=== PATIENT | male | born 1985 | race Caucasian/White ===

== ENCOUNTER 2017-12-23 11:37 | Outpatient (CLI) | payer OTHER ==
[2017-12-23 14:18] LABS: #Eosinphils 0.1 thou/uL (0.0-0.7); #Lymphocytes 1.5 thou/uL (1.20-3.40); #Monocytes 0.5 thou/uL (0.11-0.59); #Neutrophils 5.9 thou/uL (1.40-6.50); %Basophils 0.5 % (0.0-1.0); %Eosinophils 1.1 % (0.0-10.0); %Lymphocytes 19.1 % (21.0-51.0); %Monocytes 5.8 % (0.0-10.0); %Neutrophils 73.4 % (42.0-75.0); Hemoglobin 18.3 g/dL (14.0-18.0); Mean Corpuscular HGB CONC 34.6 g/dL (32.0-36.0); Mean Corpuscular Hemoglobin 31.3 pg (27.0-31.0); Mean Corpuscular Volume 90.5 fl (80.0-94.0); Mean Platelet Volume 7.5 fL (7.4-10.4); Platelet Count 213 thou/uL (130-400); RBC Distribution Width 12.3 % (11.5-14.5); Red Blood Cell (RBC) Count 5.86 mill/uL (4.70-6.10)
[2017-12-23 14:53] LABS: Anion Gap 13 mmol/L (10-20); BUN (Urea Nitrogen) 10 mg/dL (8.9-20.6); Calc. Creatinine Clearance 0 mL/min (70-130); Calcium 9.9 mg/dL (7.8-10.44); Carbon Dioxide 25 mmol/L (22-29); Chloride 102 mmol/L (98-107); Estimated GFR-MDRD Greater than 90; Glucose 89 mg/dL (70-105); Sodium 136 mmol/L (136-145)
== END 2017-12-23 11:38 | disposition home or self-care (01) ==
LOC: LABBT 11:37
PROVIDERS: ATTEND Specialist
DX: Z01.812 Encounter for preprocedural laboratory examination (principal); K40.90 Unilateral inguinal hernia, without obstruction or gangrene, not specified as recurrent
CPT/HCPCS: 80048; 85025

== ENCOUNTER 2017-12-28 13:34 | Day surgery (SDC) | payer OTHER ==
--- NOTE | 2017-12-23 12:24 | HP ---
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 He occa sionally does heavy lifting, but most time spends in the vehicles observing machinery and troubleshoo ting. Patient a week ago was weightlifting heavy objects on the job, noticed a bulge in his left anna in. This is very large and with time it reduced. He continues to have discomfort. Today in the off ice on initial exam, he appreciated a left inguinal hernia, but could not reduce, but reproduces on s ubsequent exam, although exam was compromised by his tenderness in the area. Testicles are normal bi laterally, right groin without hernia. ALLERGIES: SULFA. SOCIAL HISTORY: Tobacco 1/2 pack per day. ALCOHOL: None. MEDICATIONS: Phentermine for weight loss, just started. PAST SURGICAL HISTORY: Laparoscopic resection of a colon cyst. REVIEW OF SYSTEMS: Ten point noncontributory. The patient is single. PHYSICAL EXAMINATION: VITAL SIGNS: 242 pounds, 69 inches, 35 BMI, 159/92, 120 heart rate, temperature 97.9 degrees. HEENT: Unremarkable. LUNGS: Clear to auscultation. CARDIAC: Regular rate and rhythm without murmur or gallop. ABDOMEN: Soft, nontender. EXTREMITIES: Unremarkable. No ankle edema and axillary and groins without lymphadenopathy. SKIN: Normal color. Sclerae nonicteric neurologically intact. No focal deficits. Testicles normal bilaterally, right groin without hernia. The patient was examined standing and the left inguinal he rnia appreciated on initial exam, but it was too tender to reproduce this. Testicles normal without tenderness. ASSESSMENT AND PLAN: Left inguinal hernia. Would recommend repair using mesh. He understands risks of infection, bleeding, reoperation and consents.
[2017-12-23 13:24] VITALS: BMI 34.0
[2017-12-28] MEDS ORDERED: CEFAZOLIN/Water 2 GM/20 ML SYRINGE ONE (13:44)
[2017-12-28] MEDS ORDERED: Ketorolac Tromethamine 30 MG/ML VIAL ONE (13:44)
[2017-12-28] MEDS ORDERED: Fentanyl 100 MCG/2 ML VIAL ONE ×5 (15:33→19:19)
[2017-12-28] MEDS ORDERED: Propofol 200 MG/20 ML VIAL ONE (16:03)
[2017-12-28] MEDS ORDERED: Lidocaine 1% PF 5 ML VIAL ONE (16:03)
[2017-12-28] MEDS ORDERED: Ondansetron HCl/PF 4 MG/2 ML Vial ONE (16:03)
[2017-12-28] MEDS ORDERED: Dexamethasone 20 MG/5 ML VIAL ONE (16:03)
[2017-12-28] MEDS ORDERED: Lidocaine 2% w/Epinephrine 1:200K 20 ML VIAL ONE (16:07)
[2017-12-28] MEDS ORDERED: Bupivacaine PF 0.5% 30 ML VIAL ONE (16:07)
[2017-12-28] MEDS ORDERED: Midazolam HCl 2 mg/2 ml Vial ONE ×2 (17:43→19:43)
[2017-12-28] MEDS ORDERED: HYDROmorphone 0.5 MG/0.5 ML SYRINGE ONE ×2 (19:36→19:43)
[2017-12-28] MEDS ORDERED: HYDROcodone/Acetaminophen 5/325 mg Tablet ONE (20:57)
--- NOTE | 2017-12-28 22:35 | OP ---
PREOPERATIVE DIAGNOSIS: Left inguinal hernia. POSTOPERATIVE DIAGNOSIS: Left inguinal hernia. PROCEDURE: PHS mesh repair of direct left inguinal hernia and resection of large lipoma of the cord. SURGEON: Rey Montano M.D. ANESTHESIA: General. Local of 0.5% Marcaine, 30 mL, mixed with 2% Xylocaine, 20 mL. PROCEDURE IN DETAIL: The patient taken to the operating room where under general anesthesia, abdomen was clipped of hair, prepared with ChloraPrep, draped in routine fashion. Ioban was used. Local an esthetic infiltrated into skin and subcutaneous tissue for ilioinguinal nerve block and along the filiberto e of incision in the lower left groin and carried down through the skin and subcutaneous tissue. The external oblique, incising it in the direction of its fibers to the cord structures which were disse cted free and surrounded with Edgerton drain. Cremasteric fibers were taken down with the cautery. I lioinguinal nerve identified excised and large lipoma of the cord was resected with cautery. Indirec t hernia sac was not present and direct hernial defect was noted. PHS mesh underlay portion placed i n the preperitoneal space. The onlay portion placed in the floor of canal, placing the extended port ion superiorly in the inguinal canal. A slit made in the mesh laterally to the cylindrical connectin g ring and mesh brought around the cord structures and secured itself laterally to Poupart's ligament with 0 Nurolon suture. Inferiorly, the mesh secured to Edmundo's ligament with 2 interrupted sutures of 0 Nurolon. Good hernia repair undertaken. Edgerton drain was removed. External oblique closed w ith continuous suture of 3-0 Monocryl, Camper's with 3-0 Monocryl, skin with subdermal 4-0 Monocryl a nd local anesthetic mixture infiltrated into the space of the inguinal canal and space above and belo w Camper's fascia and infiltrated into skin and subcutaneous tissue. The patient tolerated the proce dure well.
== END 2017-12-28 21:28 | disposition home or self-care (01) ==
LOC: SDC 13:34
PROVIDERS: ATTEND Specialist
PROC: 0YU60JZ Supplement Left Inguinal Region with Synthetic Substitute, Open Approach (ICD-10-PCS; principal; 2017-12-28)
DX: K40.90 Unilateral inguinal hernia, without obstruction or gangrene, not specified as recurrent (principal); D17.6 Benign lipomatous neoplasm of spermatic cord; K21.9 Gastro-esophageal reflux disease without esophagitis; F17.210 Nicotine dependence, cigarettes, uncomplicated; Z79.899 Other long term (current) drug therapy; Z88.2 Allergy status to sulfonamides; Z98.890 Other specified postprocedural states
CPT/HCPCS: 96374; C1781; J0131; J1100; J1170; J1885; J2001; J2250; J2405; J2704; J3010; S0020

== ENCOUNTER 2018-10-04 13:18 | Outpatient (CLI) | payer OTHER ==
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
== END 2018-10-04 13:19 | disposition home or self-care (01) ==
LOC: BICRAD 13:18
PROVIDERS: ATTEND Physician Assistant
DX: J45.901 Unspecified asthma with (acute) exacerbation (principal)
CPT/HCPCS: 71046

== ENCOUNTER 2021-06-23 12:50 | Emergency (ER) | payer SELFPAY ==
[2021-06-23 14:20] LABS: #Basophils 0.1 thou/uL (0.0-0.2); #Eosinphils 0.5 thou/uL (0.0-0.7); #Monocytes 0.5 thou/uL (0.11-0.59); #Neutrophils 4.3 thou/uL (1.40-6.50); %Eosinophils 7.3 % (0.0-10.0); %Lymphocytes 26.5 % (21.0-51.0); %Monocytes 7.2 % (0.0-10.0); Mean Corpuscular HGB CONC 33.6 g/dL (32.0-36.0); Mean Corpuscular Hemoglobin 30.7 pg (27.0-31.0); Mean Corpuscular Volume 91.2 fL (78.0-98.0); Mean Platelet Volume 7.5 fL (7.4-10.4); Platelet Count 219 thou/uL (130-400); Red Blood Cell (RBC) Count 5.55 mill/uL (4.70-6.10); White Blood Cell (WBC) Count 7.4 thou/uL (4.8-10.8)
[2021-06-23 14:42] LABS: ALT (SGPT) 148 U/L (8-55); AST (SGOT) 73 U/L (5-34); Albumin 4.7 g/dL (3.5-5.0); Alkaline Phosphatase 46 U/L (40-110); Anion Gap 10 mmol/L (10-20); BUN (Urea Nitrogen) 11 mg/dL (8.9-20.6); Bilirubin, Total 0.6 mg/dL (0.2-1.2); Calc. Creatinine Clearance 0 mL/min (70-130); Calcium 9.6 mg/dL (7.8-10.44); Carbon Dioxide 28 mmol/L (22-29); Chloride 101 mmol/L (98-107); Globulin 2.9 g/dL (2.4-3.5); Glucose 125 mg/dL (70-105); Protein, Total 7.6 g/dL (6.0-8.3); Sodium 135 mmol/L (136-145)
[2021-06-23] MEDS ORDERED: Ketorolac Tromethamine 30 MG/ML VIAL ONE (15:51)
[2021-06-23] MEDS ORDERED: Cyclobenzaprine 10 MG TAB ONE (15:51)
[2021-06-23] MEDS ORDERED: predniSONE 20 MG TAB ONE (15:51)
[2021-06-24 00:13] LABS: SARS-CoV-2 PCR by NAA Not Detected (NotDetected)
== END 2021-06-23 16:49 | disposition home or self-care (01) ==
LOC: ERS 12:50
DX: B34.9 Viral infection, unspecified (principal); K40.90 Unilateral inguinal hernia, without obstruction or gangrene, not specified as recurrent; Z20.822 Contact with and (suspected) exposure to COVID-19
CPT/HCPCS: 36415; 71045; 80053; 83690; 84484; 85025; 93005; 94760; 96372; J1885; J7512; U0003; U0005

== ENCOUNTER 2021-10-01 11:43 | Inpatient (IN) | payer OTHER, SELFPAY ==
[2021-10-01] MEDS ORDERED: methylPREDNISolone Sod Succ/PF 125 MG/2 ML VIAL ONE (13:25)
[2021-10-01] MEDS ORDERED: Diazepam 10 MG/2 ML SYRINGE ONE (13:26)
[2021-10-01] MEDS ORDERED: Ondansetron PF 4 MG/2 ML Vial ONE ×2 (15:07→15:15)
[2021-10-01] MEDS ORDERED: Morphine 4 MG/ML VIAL ONE ×2 (15:07→15:15)
[2021-10-01] MEDS ORDERED: Ketorolac Tromethamine 30 MG/ML VIAL ONE (15:08)
[2021-10-01 16:39] LABS: #Lymphocytes 0.9 thou/uL (1.20-3.40); #Monocytes 0.2 thou/uL (0.11-0.59); #Neutrophils 6.8 thou/uL (1.40-6.50); %Basophils 0.3 % (0.0-1.0); %Eosinophils 0.5 % (0.0-10.0); %Lymphocytes 11.5 % (21.0-51.0); %Monocytes 2.2 % (0.0-10.0); %Neutrophils 85.5 % (42.0-75.0); Hemoglobin 16.6 g/dL (14.0-18.0); Mean Corpuscular HGB CONC 33.9 g/dL (32.0-36.0); Mean Corpuscular Hemoglobin 30.1 pg (27.0-31.0); Mean Corpuscular Volume 88.8 fL (78.0-98.0); Mean Platelet Volume 7.1 fL (7.4-10.4); Platelet Count 201 thou/uL (130-400); RBC Distribution Width 12.4 % (11.5-14.5); Red Blood Cell (RBC) Count 5.51 mill/uL (4.70-6.10)
[2021-10-01 16:59] LABS: ALT (SGPT) 144 U/L (8-55); AST (SGOT) 65 U/L (5-34); Albumin 4.6 g/dL (3.5-5.0); Alkaline Phosphatase 42 U/L (40-110); Anion Gap 13 mmol/L (10-20); BUN (Urea Nitrogen) 12 mg/dL (8.9-20.6); Bilirubin, Total 0.8 mg/dL (0.2-1.2); Calc. Creatinine Clearance 0 mL/min (70-130); Calcium 9.6 mg/dL (7.8-10.44); Carbon Dioxide 24 mmol/L (22-29); Chloride 103 mmol/L (98-107); Globulin 2.9 g/dL (2.4-3.5); Glucose 174 mg/dL (70-105); Protein, Total 7.5 g/dL (6.0-8.3); Sodium 136 mmol/L (136-145)
[2021-10-01] MEDS ORDERED: Enoxaparin Sodium 40 MG/0.4 ML SYRINGE SC SCH (17:00)
[2021-10-01] MEDS ORDERED: Ondansetron PF 4 MG/2 ML Vial IVP PRN (17:00)
[2021-10-01] MEDS ORDERED: Calcium Carbonate 500 MG ChewTAB PO PRN (17:00)
[2021-10-01] MEDS ORDERED: Senokot S 8.6-50 MG TAB PO PRN (17:00)
[2021-10-01] MEDS ORDERED: Ondansetron ODT 4 MG TAB PO PRN (17:00)
[2021-10-01 17:04] LABS: Bilirubin Negative (Negative); Blood, Urine Negative (Negative); Clarity Clear (Clear); Glucose, Urine (Dipstick) Normal (Negative); Ketone, Urine Negative (Negative); Leukocyte Negative Leu/uL (Negative); Nitrite Negative (Negative); Protein, Urine (Dipstick) Negative (Neg-Trace); Specific Gravity, Urine 1.023 (1.002-1.036); Urobilinogen Normal mg/dL (Less than 2); pH, Urine 5.5 (5.0-9.0)
[2021-10-01 17:37] VITALS: BMI 37.0
[2021-10-01] MEDS: Morphine 4 MG/ML VIAL SLOW IVP PRN ×3 (17:43→23:30)
[2021-10-01 17:44] LABS: Magnesium 1.9 mg/dL (1.6-2.6)
[2021-10-01] MEDS: Acetaminophen 325 MG TAB PO SCH ×2 (17:50→23:29)
[2021-10-01 17:52] LABS: Phosphorus 1.1 mg/dL (2.3-4.7)
[2021-10-01] MEDS: Nicotine 21 MG PATCH TD SCH (17:53)
[2021-10-01] MEDS ORDERED: predniSONE 20 MG TAB PO SCH (18:00)
[2021-10-01] MEDS ORDERED: Potassium Phosphate 9 MMOL in Sodium Chloride 0.9% 100 ML IVPB SCH (18:15)
[2021-10-01] MEDS: tiZANidine HCl 4 MG TAB PO SCH (19:29)
[2021-10-01] MEDS: Gabapentin 300 MG CAP PO SCH (20:32)
[2021-10-01] MEDS: Ibuprofen 800 MG TAB PO SCH (20:33)
[2021-10-01 22:23] LABS: Phosphorus 1.3 mg/dL (2.3-4.7)
[2021-10-01] MEDS: Lidocaine 5% Patch TD SCH (23:31)
[2021-10-02 02:50] LABS: Phosphorus 1.9 mg/dL (2.3-4.7)
[2021-10-02] MEDS: Morphine 4 MG/ML VIAL SLOW IVP PRN ×9 (03:41→23:03)
[2021-10-02] MEDS ORDERED: Potassium Phosphate 9 MMOL in Sodium Chloride 0.9% 100 ML IVPB SCH (04:00)
[2021-10-02] MEDS: Acetaminophen 325 MG TAB PO SCH ×3 (05:26→18:12)
[2021-10-02] MEDS: Ibuprofen 800 MG TAB PO SCH (05:27)
[2021-10-02 05:55] LABS: ALT (SGPT) 132 U/L (8-55); AST (SGOT) 46 U/L (5-34); Albumin 4.4 g/dL (3.5-5.0); Alkaline Phosphatase 49 U/L (40-110); Bilirubin, Direct 0.2 mg/dL (0.1-0.3); Bilirubin, Total 0.6 mg/dL (0.2-1.2); Protein, Total 7.1 g/dL (6.0-8.3)
[2021-10-02 07:37] LABS: SARS-CoV-2 PCR by NAA Not Detected (NotDetected)
[2021-10-02] MEDS ORDERED: Lidocaine 5% Patch TD SCH (09:00)
[2021-10-02] MEDS ORDERED: FLU VACC QS2021-22(6MOS UP)/PF 60 MCG/0.5 ML SYRINGE IM ONE (09:00)
[2021-10-02] MEDS ORDERED: Morphine 4 MG/ML VIAL SLOW IVP SCH (09:30)
[2021-10-02] MEDS: Enoxaparin Sodium 40 MG/0.4 ML SYRINGE SC SCH (09:49)
[2021-10-02] MEDS: Cholecalciferol 1,000 UNITS (25 MCG) TAB PO SCH (09:50)
[2021-10-02] MEDS: Gabapentin 300 MG CAP PO SCH ×3 (09:51→20:09)
[2021-10-02] MEDS: tiZANidine HCl 4 MG TAB PO SCH (09:52)
[2021-10-02] MEDS: Calcium Carbonate 600 MG + Vit D TAB PO SCH (09:52)
[2021-10-02] MEDS: HYDROcodone/Acetaminophen 5/325 mg Tablet PO SCH ×2 (11:03→14:27)
[2021-10-02] MEDS: Transdermal Patch Removal TOP SCH (11:09)
[2021-10-02] MEDS: Baclofen 10 MG TAB PO SCH ×2 (14:25→20:11)
[2021-10-02] MEDS ORDERED: Morphine 2 MG/ML VIAL SLOW IVP SCH (14:30)
[2021-10-02] MEDS ORDERED: Morphine IR Tab 15 MG TAB PO SCH (16:00)
[2021-10-02] MEDS ORDERED: fentaNYL 50 mcg/hour Patch TD SCH (16:30)
[2021-10-02] MEDS: Nicotine 21 MG PATCH TD SCH (16:35)
[2021-10-02] MEDS ORDERED: methylPREDNISolone Sod Succ 40 MG VIAL IVP SCH (16:45)
[2021-10-02 16:54] LABS: Amphetamine Not Detected (NotDetected); Barbiturates Screen Not Detected (NotDetected); Benzodiazepine Screen Detected (NotDetected); Cocaine Metabolite Screen Not Detected (NotDetected); Methadone Not Detected (NotDetected); Methamphetamine Not Detected (NotDetected); Opiate Screen Detected (NotDetected); Oxycodone Screen Not Detected (NotDetected); Phencyclidine (PCP) Not Detected (NotDetected); THC/Cannabinoid Screen Not Detected (NotDetected); Tricyclic Screen Not Detected (NotDetected)
[2021-10-02] MEDS ORDERED: Baclofen 10 MG TAB PO SCH (21:00)
[2021-10-02] MEDS: Lidocaine 5% Patch TD SCH (21:33)
[2021-10-03] MEDS: Morphine 4 MG/ML VIAL SLOW IVP PRN ×12 (00:53→22:35)
[2021-10-03] MEDS: Senokot 8.6 MG TAB PO PRN ×2 (01:00→18:36)
[2021-10-03] MEDS: Acetaminophen 325 MG TAB PO SCH ×4 (01:04→18:03)
[2021-10-03 08:15] LABS: ALT (SGPT) 94 U/L (8-55); AST (SGOT) 20 U/L (5-34); Albumin 4.5 g/dL (3.5-5.0); Alkaline Phosphatase 47 U/L (40-110); Anion Gap 12 mmol/L (10-20); BUN (Urea Nitrogen) 13 mg/dL (8.9-20.6); Bilirubin, Total 0.4 mg/dL (0.2-1.2); Calc. Creatinine Clearance 189 mL/min (70-130); Carbon Dioxide 30 mmol/L (22-29); Chloride 99 mmol/L (98-107); Globulin 2.8 g/dL (2.4-3.5); Glucose 164 mg/dL (70-105); Phosphorus 4.8 mg/dL (2.3-4.7); Potassium 4.4 mmol/L (3.5-5.1); Protein, Total 7.3 g/dL (6.0-8.3); Sodium 137 mmol/L (136-145)
[2021-10-03] MEDS: Baclofen 10 MG TAB PO SCH ×3 (08:42→21:02)
[2021-10-03] MEDS: Calcium Carbonate 600 MG + Vit D TAB PO SCH (08:42)
[2021-10-03] MEDS: Cholecalciferol 1,000 UNITS (25 MCG) TAB PO SCH (08:42)
[2021-10-03] MEDS: Gabapentin 300 MG CAP PO SCH ×3 (08:43→21:02)
[2021-10-03] MEDS: Enoxaparin Sodium 40 MG/0.4 ML SYRINGE SC SCH (08:43)
[2021-10-03] MEDS: methylPREDNISolone Sod Succ 40 MG VIAL IVP SCH (08:43)
[2021-10-03] MEDS: Polyethylene Glycol 3350 17 GM Packet PO SCH (08:44)
[2021-10-03] MEDS: Transdermal Patch Removal TOP SCH (08:44)
[2021-10-03] MEDS ORDERED: Dexamethasone 4 mg/ml Vial IM SCH (09:00)
[2021-10-03] MEDS: Nicotine 21 MG PATCH TD SCH (17:17)
[2021-10-03] MEDS: Lidocaine 5% Patch TD SCH (21:04)
[2021-10-04] MEDS: Acetaminophen 325 MG TAB PO SCH ×2 (01:28→06:57)
[2021-10-04] MEDS: Morphine 4 MG/ML VIAL SLOW IVP PRN ×7 (01:28→20:24)
[2021-10-04] MEDS: Nicotine 21 MG PATCH TD SCH (03:19)
[2021-10-04 07:41] LABS: ALT (SGPT) 78 U/L (8-55); AST (SGOT) 24 U/L (5-34); Albumin 4.4 g/dL (3.5-5.0); Alkaline Phosphatase 46 U/L (40-110); Anion Gap 11 mmol/L (10-20); BUN (Urea Nitrogen) 17 mg/dL (8.9-20.6); Bilirubin, Total 0.4 mg/dL (0.2-1.2); Calc. Creatinine Clearance 195 mL/min (70-130); Calcium 9.3 mg/dL (7.8-10.44); Carbon Dioxide 31 mmol/L (22-29); Chloride 101 mmol/L (98-107); Globulin 2.5 g/dL (2.4-3.5); Glucose 120 mg/dL (70-105); Potassium 4.2 mmol/L (3.5-5.1); Protein, Total 6.9 g/dL (6.0-8.3); Sodium 139 mmol/L (136-145)
[2021-10-04 07:42] LABS: Phosphorus 4.9 mg/dL (2.3-4.7)
[2021-10-04] MEDS: Transdermal Patch Removal TOP SCH ×2 (09:00→09:04)
[2021-10-04] MEDS: methylPREDNISolone Sod Succ 40 MG VIAL IVP SCH (09:02)
[2021-10-04] MEDS: Calcium Carbonate 600 MG + Vit D TAB PO SCH (09:02)
[2021-10-04] MEDS: Gabapentin 300 MG CAP PO SCH (09:02)
[2021-10-04] MEDS: Cholecalciferol 1,000 UNITS (25 MCG) TAB PO SCH (09:03)
[2021-10-04] MEDS: Senokot 8.6 MG TAB PO SCH ×2 (09:03→20:19)
[2021-10-04] MEDS: Baclofen 10 MG TAB PO SCH ×3 (09:03→20:20)
[2021-10-04] MEDS: Polyethylene Glycol 3350 17 GM Packet PO SCH (09:04)
[2021-10-04] MEDS: Enoxaparin Sodium 60 MG/0.6 ML SYRINGE SC SCH (09:04)
[2021-10-04] MEDS ORDERED: oxyCODONE/Acetaminophen 5 mg/325 mg Tablet PO PRN (10:49)
[2021-10-04] MEDS ORDERED: Gabapentin 300 MG CAP PO SCH (10:53)
[2021-10-04] MEDS: oxyCODONE/Acetaminophen 5 mg/325 mg Tablet PO PRN ×2 (12:04→16:14)
[2021-10-04] MEDS: Gabapentin 400 MG CAP PO SCH ×2 (14:22→20:20)
[2021-10-04 17:00] LABS: Reference Lab Name LABCORP
[2021-10-04 17:01] LABS: Ref Lab Test Ordered DRUG SCR 12 W CONF
[2021-10-04] MEDS: Lidocaine 5% Patch TD SCH (21:08)
[2021-10-05] MEDS: oxyCODONE/Acetaminophen 5 mg/325 mg Tablet PO PRN ×2 (01:04→07:43)
[2021-10-05] MEDS: Morphine 4 MG/ML VIAL SLOW IVP PRN ×4 (04:02→21:09)
[2021-10-05 07:07] LABS: Phosphorus 4.7 mg/dL (2.3-4.7)
[2021-10-05 07:21] LABS: AST (SGOT) 23 U/L (5-34); Albumin 3.9 g/dL (3.5-5.0); Anion Gap 13 mmol/L (10-20); BUN (Urea Nitrogen) 13 mg/dL (8.9-20.6); Bilirubin, Total 0.4 mg/dL (0.2-1.2); Calc. Creatinine Clearance 202 mL/min (70-130); Calcium 9.6 mg/dL (7.8-10.44); Carbon Dioxide 26 mmol/L (22-29); Chloride 99 mmol/L (98-107); Globulin 2.8 g/dL (2.4-3.5); Glucose 108 mg/dL (70-105); Potassium 4.3 mmol/L (3.5-5.1); Protein, Total 6.7 g/dL (6.0-8.3); Sodium 134 mmol/L (136-145)
[2021-10-05 07:27] LABS: Alkaline Phosphatase 42 U/L (40-110)
[2021-10-05 07:30] LABS: ALT (SGPT) 74 U/L (8-55)
[2021-10-05] MEDS ORDERED: Polyethylene Glycol 3350 17 GM Packet PO SCH (09:00)
[2021-10-05] MEDS: Baclofen 10 MG TAB PO SCH ×3 (09:42→21:15)
[2021-10-05] MEDS: Gabapentin 400 MG CAP PO SCH ×3 (09:42→21:23)
[2021-10-05] MEDS: Calcium Carbonate 600 MG + Vit D TAB PO SCH (09:42)
[2021-10-05] MEDS: Cholecalciferol 1,000 UNITS (25 MCG) TAB PO SCH (09:42)
[2021-10-05] MEDS: Docusate 100 MG CAP PO SCH ×2 (09:43→21:17)
[2021-10-05] MEDS: Senokot 8.6 MG TAB PO SCH ×2 (09:43→21:17)
[2021-10-05] MEDS: methylPREDNISolone Sod Succ 40 MG VIAL IVP SCH (09:43)
[2021-10-05] MEDS: Transdermal Patch Removal TOP SCH (09:44)
[2021-10-05] MEDS ORDERED: GoLYTELY 4,000 ml Bottle PO SCH (10:00)
[2021-10-05] MEDS ORDERED: fentaNYL 75 mcg/hour Patch TD SCH (10:00)
[2021-10-05] MEDS: Enoxaparin Sodium 60 MG/0.6 ML SYRINGE SC SCH (10:28)
[2021-10-05] MEDS ORDERED: HYDROcodone/Acetaminophen 10/325 mg Tablet PO PRN ×3 (11:09→11:17)
[2021-10-05] MEDS: HYDROcodone/Acetaminophen 10/325 mg Tablet PO PRN ×2 (13:43→19:55)
[2021-10-05 16:32] LABS: Syphilis Antibody Nonreactive (Nonreactive); Syphilis Antibody Index 0.04 S/CO (<1.00 Non-Reactive)
[2021-10-05 16:45] LABS: Vitamin B12 387 pg/mL (211-911)
[2021-10-05 17:00] LABS: HBCM Index 0.08 S/CO (0-0.79); HBSAg Index 0.28 S/CO (0-0.99); HIV (1/2) Antibody/Antigen Non-Reactive (NonReactive); HIV 1/2 INDEX 0.16 S/CO (<1.00); Hep A IgM AB Non-Reactive (NonReactive); Hep A IgM S/CO 0.12 S/CO (0-0.79); Hep B Surf Ag Non-Reactive S/CO (NonReactive); Hep C IgG Ab Non-Reactive (NonReactive); Hep C Index 0.12 S/CO (0-0.79); Hepatitis B Core IgM Abs Non-Reactive (NonReactive)
[2021-10-05] MEDS: Nicotine 21 MG PATCH TD SCH (17:41)
[2021-10-05] MEDS: Polyethylene Glycol 3350 17 GM Packet PO SCH (21:23)
[2021-10-05] MEDS: Lidocaine 5% Patch TD SCH (21:24)
[2021-10-06] MEDS ORDERED: Morphine 4 MG/ML VIAL SLOW IVP SCH ×2 (01:00→14:30)
[2021-10-06] MEDS: HYDROcodone/Acetaminophen 10/325 mg Tablet PO PRN ×4 (02:02→23:46)
[2021-10-06] MEDS: Morphine 4 MG/ML VIAL SLOW IVP PRN ×4 (04:47→22:18)
[2021-10-06 06:56] LABS: ALT (SGPT) 74 U/L (8-55); AST (SGOT) 23 U/L (5-34); Albumin 4.1 g/dL (3.5-5.0); Alkaline Phosphatase 47 U/L (40-110); Anion Gap 9 mmol/L (10-20); BUN (Urea Nitrogen) 17 mg/dL (8.9-20.6); Bilirubin, Total 0.5 mg/dL (0.2-1.2); Calc. Creatinine Clearance 198 mL/min (70-130); Calcium 9.5 mg/dL (7.8-10.44); Carbon Dioxide 35 mmol/L (22-29); Chloride 96 mmol/L (98-107); Globulin 2.4 g/dL (2.4-3.5); Glucose 118 mg/dL (70-105); Phosphorus 4.6 mg/dL (2.3-4.7); Potassium 4.1 mmol/L (3.5-5.1); Protein, Total 6.5 g/dL (6.0-8.3); Sodium 136 mmol/L (136-145)
[2021-10-06] MEDS ORDERED: Ketorolac Tromethamine 10 MG TAB PO SCH (07:00)
[2021-10-06] MEDS: Gabapentin 400 MG CAP PO SCH ×3 (09:16→21:12)
[2021-10-06] MEDS: Calcium Carbonate 600 MG + Vit D TAB PO SCH (09:16)
[2021-10-06] MEDS: Cholecalciferol 1,000 UNITS (25 MCG) TAB PO SCH (09:16)
[2021-10-06] MEDS: Docusate 100 MG CAP PO SCH ×2 (09:17→21:14)
[2021-10-06] MEDS: Polyethylene Glycol 3350 17 GM Packet PO SCH ×2 (09:17→21:14)
[2021-10-06] MEDS: Senokot 8.6 MG TAB PO SCH ×2 (09:17→21:14)
[2021-10-06] MEDS: Baclofen 10 MG TAB PO SCH ×3 (09:30→21:15)
[2021-10-06] MEDS: methylPREDNISolone Sod Succ 40 MG VIAL IVP SCH (09:34)
[2021-10-06] MEDS: Enoxaparin Sodium 60 MG/0.6 ML SYRINGE SC SCH (09:34)
[2021-10-06] MEDS ORDERED: Milk Of Magnesia 30 ML UDCUP PO PRN (11:00)
[2021-10-06] MEDS ORDERED: diphenhydrAMINE 12.5 MG in Sodium Chloride 0.9% 50 ML IVPB SCH (11:00)
[2021-10-06] MEDS: Transdermal Patch Removal TOP SCH (11:04)
[2021-10-06] MEDS ORDERED: Magnevist 469MG/ML 20 ML VIAL ONE (11:24)
[2021-10-06] MEDS ORDERED: Lidocaine 1% w/Epinephrine 1:100K 20 ML VIAL ONE (15:48)
[2021-10-06] MEDS: Nicotine 21 MG PATCH TD SCH (18:24)
[2021-10-06 21:12] VITALS: BP 144/79; TEMP 99
[2021-10-06] MEDS: Lidocaine 5% Patch TD SCH (21:15)
[2021-10-07] MEDS ORDERED: Dexamethasone 4 MG TAB PO SCH (08:00)
== END 2021-10-07 00:07 | disposition short-term general hospital (02) | DRG 552 ==
LOC: ERS 11:43 → T4-A 16:22 → OBSVTOIN 16:22
PROVIDERS: ADMIT Student in an Organized Health Care Education/Training Program; ATTEND Student in an Organized Health Care Education/Training Program
DX: M51.17 Intervertebral disc disorders with radiculopathy, lumbosacral region (principal); G82.20 Paraplegia, unspecified; Z20.822 Contact with and (suspected) exposure to COVID-19; F17.210 Nicotine dependence, cigarettes, uncomplicated; R74.01 Elevation of levels of liver transaminase levels; B00.9 Herpesviral infection, unspecified; K30 Functional dyspepsia; M85.88 Other specified disorders of bone density and structure, other site; E55.9 Vitamin D deficiency, unspecified; K76.0 Fatty (change of) liver, not elsewhere classified; K59.00 Constipation, unspecified; F17.290 Nicotine dependence, other tobacco product, uncomplicated; I50.9 Heart failure, unspecified; I11.0 Hypertensive heart disease with heart failure; Z88.1 Allergy status to other antibiotic agents; Z88.2 Allergy status to sulfonamides; Z28.21 Immunization not carried out because of patient refusal; Z90.49 Acquired absence of other specified parts of digestive tract; Z98.890 Other specified postprocedural states; Z83.3 Family history of diabetes mellitus; Z82.49 Family history of ischemic heart disease and other diseases of the circulatory system; Z80.9 Family history of malignant neoplasm, unspecified
CPT/HCPCS: 36415; 70553; 72128; 72131; 72146; 72148; 72149; 72156; 76705; 80053; 80074; 80076; 80306; 81003; 82306; 82570; 82607; 82746; 83735; 83970; 84100; 84105; 85025; 85520; 85652; 86038; 86140; 86225; 86780; 87389; 96372; 96374; 96375; 96376; G0378; J1200; J1650; J1885; J2270; J2405; J2920; J2930; J3360; J3490; J7512; U0003; U0005

== ENCOUNTER 2022-03-16 08:27 | Emergency (ER) | payer OTHER ==
[2022-03-16 09:24] LABS: #Eosinphils 0.1 thou/uL (0.0-0.7); #Lymphocytes 1.3 thou/uL (1.20-3.40); #Monocytes 0.3 thou/uL (0.11-0.59); %Basophils 0.6 % (0.0-1.0); %Eosinophils 3.2 % (0.0-10.0); %Lymphocytes 34.8 % (21.0-51.0); %Monocytes 7.9 % (0.0-10.0); %Neutrophils 53.6 % (42.0-75.0); Hemoglobin 15.6 g/dL (14.0-18.0); Mean Corpuscular HGB CONC 31.7 g/dL (32.0-36.0); Mean Corpuscular Hemoglobin 28.9 pg (27.0-31.0); Mean Corpuscular Volume 91.1 fL (78.0-98.0); Mean Platelet Volume 7.5 fL (7.4-10.4); Platelet Count 165 thou/uL (130-400); Red Blood Cell (RBC) Count 5.41 mill/uL (4.70-6.10); White Blood Cell (WBC) Count 3.8 thou/uL (4.8-10.8)
[2022-03-16 09:44] LABS: ALT (SGPT) 90 U/L (8-55); AST (SGOT) 36 U/L (5-34); Albumin 4.9 g/dL (3.5-5.0); Alkaline Phosphatase 43 U/L (40-110); Anion Gap 13 mmol/L (10-20); BUN (Urea Nitrogen) 14 mg/dL (8.9-20.6); Bilirubin, Total 0.5 mg/dL (0.2-1.2); Calc. Creatinine Clearance 0 mL/min (70-130); Calcium 9.7 mg/dL (7.8-10.44); Carbon Dioxide 27 mmol/L (22-29); Chloride 103 mmol/L (98-107); Globulin 2.6 g/dL (2.4-3.5); Glucose 103 mg/dL (70-105); Potassium 4.2 mmol/L (3.5-5.1); Protein, Total 7.5 g/dL (6.0-8.3); Sodium 139 mmol/L (136-145)
== END 2022-03-16 13:01 | disposition home or self-care (01) ==
LOC: ERS 08:27
DX: K62.5 Hemorrhage of anus and rectum (principal); K76.9 Liver disease, unspecified; F17.220 Nicotine dependence, chewing tobacco, uncomplicated
CPT/HCPCS: 74177; 80053; 82274; 85025

== ENCOUNTER 2022-09-18 08:40 | Outpatient (CLI) | payer BC | END 2022-09-18 08:41 | disposition home or self-care (01) | LOC: TBSIIMAG 08:40 | PROVIDERS: ATTEND Physician Assistant Surgical | DX: M54.50 Low back pain, unspecified (principal) | CPT/HCPCS: 72120 ==

== ENCOUNTER 2023-07-12 11:22 | Emergency (ER) | payer BC ==
[2023-07-12] MEDS ORDERED: Methocarbamol 1 GM/10 ML VIAL SLOW IVP SCH (12:15)
== END 2023-07-12 13:49 | disposition home or self-care (01) ==
LOC: ERS 11:22
DX: M54.6 Pain in thoracic spine (principal); F17.220 Nicotine dependence, chewing tobacco, uncomplicated
CPT/HCPCS: 99283; J2800

== ENCOUNTER 2023-10-07 01:27 | Inpatient (IN) | payer BC ==
[2023-10-07] MEDS ORDERED: HYDROmorphone 0.5 MG/0.5 ML SYRINGE ONE ×2 (01:47→04:19)
[2023-10-07] MEDS ORDERED: Ondansetron PF 4 MG/2 ML Vial ONE (01:47)
[2023-10-07] MEDS ORDERED: Ketorolac Tromethamine 30 MG/ML VIAL ONE (01:47)
[2023-10-07 02:35] LABS: #Basophils 0.1 thou/uL (0.0-0.2); #Eosinphils 0.2 thou/uL (0.0-0.7); #Monocytes 0.5 thou/uL (0.11-0.59); #Neutrophils 4.1 thou/uL (1.40-6.50); %Basophils 0.7 % (0.0-1.0); %Lymphocytes 33.5 % (21.0-51.0); %Monocytes 6.1 % (0.0-10.0); %Neutrophils 56.6 % (42.0-75.0); Hematocrit 42.1 % (42.0-52.0); Hemoglobin 14.5 g/dL (14.0-18.0); Mean Corpuscular HGB CONC 34.4 g/dL (32.0-36.0); Mean Corpuscular Hemoglobin 30.2 pg (27.0-31.0); Mean Corpuscular Volume 87.7 fl (78.0-98.0); Mean Platelet Volume 9.2 fL (7.4-10.4); Platelet Count 215 10x3/uL (130-400); RBC Distribution Width 12.5 % (11.5-14.5); White Blood Cell (WBC) Count 7.3 10x3/uL (4.8-10.8)
[2023-10-07 02:59] LABS: ALT (SGPT) 20 U/L (8-55); AST (SGOT) 15 U/L (5-34); Albumin 4.5 g/dL (3.5-5.0); Alkaline Phosphatase 41 U/L (40-110); Anion Gap 16 mmol/L (10-20); BUN (Urea Nitrogen) 8 mg/dL (8.9-20.6); Bilirubin, Total 0.7 mg/dL (0.2-1.2); Calc. Creatinine Clearance 0 mL/min (70-130); Calcium 9.1 mg/dL (7.8-10.44); Carbon Dioxide 24 mmol/L (22-29); Chloride 107 mmol/L (98-107); Estimated GFR 119; Globulin 2.1 g/dL (2.4-3.5); Glucose 91 mg/dL (70-105); Potassium 3.8 mmol/L (3.5-5.1); Protein, Total 6.6 g/dL (6.0-8.3); Sodium 143 mmol/L (136-145)
[2023-10-07] MEDS ORDERED: Ondansetron ODT 4 MG TAB PO PRN (04:59)
[2023-10-07] MEDS ORDERED: Calcium Carbonate 500 MG ChewTAB PO PRN (04:59)
[2023-10-07] MEDS ORDERED: Bisacodyl 5 MG TAB PO PRN (04:59)
[2023-10-07] MEDS ORDERED: Ondansetron PF 4 MG/2 ML Vial IVP PRN (04:59)
[2023-10-07] MEDS ORDERED: Lidocaine 4% Patch TD SCH (06:00)
[2023-10-07] MEDS ORDERED: Dexamethasone 10 MG/ML VIAL ONE ×2 (06:02→09:34)
[2023-10-07] MEDS ORDERED: Acetaminophen 325 MG TAB ONE ×2 (06:10→09:33)
[2023-10-07] MEDS: Acetaminophen 325 MG/10.15 ML UDCUP PO SCH ×4 (06:15→17:13)
[2023-10-07 06:18] VITALS: BMI 29.7
[2023-10-07] MEDS ORDERED: Morphine 2 MG/ML VIAL ONE ×2 (06:19→12:41)
[2023-10-07] MEDS: Morphine 2 MG/ML VIAL SLOW IVP PRN ×4 (06:21→21:57)
[2023-10-07] MEDS: Lactated Ringer's 1,000 ML IV SCH ×3 (07:01→22:10)
[2023-10-07] MEDS ORDERED: Polyethylene Glycol 3350 17 GM Packet ONE (09:34)
[2023-10-07] MEDS ORDERED: Senokot S 8.6-50 MG TAB ONE (09:34)
[2023-10-07] MEDS: Dexamethasone 4 mg/ml Vial SLOW IVP SCH ×3 (09:39→21:12)
[2023-10-07] MEDS: Polyethylene Glycol 3350 17 GM Packet PO SCH (09:39)
[2023-10-07] MEDS: Senokot S 8.6-50 MG TAB PO SCH ×2 (09:39→21:11)
[2023-10-07] MEDS: Morphine IR Tab 15 MG TAB PO PRN (10:19)
[2023-10-07] MEDS: Cyclobenzaprine 10 MG TAB PO PRN ×2 (14:13→21:02)
[2023-10-07] MEDS: Ketorolac Tromethamine 30 MG/ML VIAL IVP PRN ×2 (14:14→20:59)
[2023-10-07] MEDS ORDERED: FLU VACC QS2023-24(6MOS UP)/PF 60 MCG/0.5 ML SYRINGE IM ONE (15:00)
[2023-10-07] MEDS ORDERED: Morphine 2 MG/ML VIAL SLOW IVP SCH (15:45)
[2023-10-07] MEDS ORDERED: Transdermal Patch Removal TOP SCH (18:00)
[2023-10-07] MEDS: Acetaminophen 500 MG TAB PO SCH (21:58)
[2023-10-08] MEDS: Dexamethasone 4 mg/ml Vial SLOW IVP SCH ×4 (02:06→20:11)
[2023-10-08] MEDS: Morphine 2 MG/ML VIAL SLOW IVP PRN ×5 (02:11→23:22)
[2023-10-08 05:58] LABS: Anion Gap 12 mmol/L (10-20); BUN (Urea Nitrogen) 9 mg/dL (8.9-20.6); Calc. Creatinine Clearance 179 mL/min (70-130); Calcium 8.9 mg/dL (7.8-10.44); Carbon Dioxide 26 mmol/L (22-29); Chloride 105 mmol/L (98-107); Estimated GFR 120; Glucose 86 mg/dL (70-105); Sodium 139 mmol/L (136-145)
[2023-10-08] MEDS: Acetaminophen 500 MG TAB PO SCH ×3 (06:05→22:20)
[2023-10-08] MEDS: Senokot S 8.6-50 MG TAB PO SCH ×2 (09:20→20:10)
[2023-10-08] MEDS: Ketorolac Tromethamine 30 MG/ML VIAL IVP PRN ×2 (09:21→17:48)
[2023-10-08] MEDS: Cyclobenzaprine 10 MG TAB PO PRN (09:21)
[2023-10-08] MEDS: Polyethylene Glycol 3350 17 GM Packet PO SCH (09:22)
[2023-10-08] MEDS: Lactated Ringer's 1,000 ML IV SCH ×2 (09:22→13:31)
[2023-10-08] MEDS: Morphine IR Tab 15 MG TAB PO PRN (16:35)
[2023-10-08] MEDS ORDERED: Morphine 2 MG/ML VIAL SLOW IVP SCH (23:45)
[2023-10-09] MEDS: Lactated Ringer's 1,000 ML IV SCH ×2 (00:03→05:30)
[2023-10-09] MEDS: Dexamethasone 4 mg/ml Vial SLOW IVP SCH ×2 (01:47→08:44)
[2023-10-09] MEDS: Ketorolac Tromethamine 30 MG/ML VIAL IVP PRN ×3 (02:30→20:24)
[2023-10-09] MEDS: Morphine 2 MG/ML VIAL SLOW IVP PRN ×5 (05:17→22:29)
[2023-10-09] MEDS: Acetaminophen 500 MG TAB PO SCH ×3 (05:17→22:41)
[2023-10-09 06:33] LABS: Anion Gap 13 mmol/L (10-20); BUN (Urea Nitrogen) 6 mg/dL (8.9-20.6); Calc. Creatinine Clearance 175 mL/min (70-130); Calcium 9.1 mg/dL (7.8-10.44); Carbon Dioxide 28 mmol/L (22-29); Chloride 103 mmol/L (98-107); Estimated GFR 119; Glucose 81 mg/dL (70-105); Potassium 3.7 mmol/L (3.5-5.1); Sodium 140 mmol/L (136-145)
[2023-10-09] MEDS: Morphine IR Tab 15 MG TAB PO PRN (07:50)
[2023-10-09] MEDS: Senokot S 8.6-50 MG TAB PO SCH ×2 (08:43→20:23)
[2023-10-09] MEDS: Polyethylene Glycol 3350 17 GM Packet PO SCH (08:44)
[2023-10-09] MEDS: Cyclobenzaprine 10 MG TAB PO PRN ×2 (11:52→20:24)
[2023-10-10] MEDS: Morphine 2 MG/ML VIAL SLOW IVP PRN ×5 (04:15→21:35)
[2023-10-10] MEDS: Ketorolac Tromethamine 30 MG/ML VIAL IVP PRN ×3 (06:27→21:35)
[2023-10-10] MEDS: Cyclobenzaprine 10 MG TAB PO PRN (06:28)
[2023-10-10 06:33] LABS: Anion Gap 13 mmol/L (10-20); BUN (Urea Nitrogen) 10 mg/dL (8.9-20.6); Calc. Creatinine Clearance 164 mL/min (70-130); Calcium 9.1 mg/dL (7.8-10.44); Carbon Dioxide 27 mmol/L (22-29); Chloride 103 mmol/L (98-107); Estimated GFR 117; Glucose 88 mg/dL (70-105); Potassium 3.9 mmol/L (3.5-5.1); Sodium 139 mmol/L (136-145)
[2023-10-10] MEDS: Acetaminophen 500 MG TAB PO SCH ×3 (06:34→21:35)
[2023-10-10] MEDS: Senokot S 8.6-50 MG TAB PO SCH ×2 (08:25→21:35)
[2023-10-10] MEDS: Polyethylene Glycol 3350 17 GM Packet PO SCH (08:26)
[2023-10-10] MEDS ORDERED: Morphine IR Tab 15 MG TAB PO PRN (09:15)
[2023-10-10] MEDS: Baclofen 10 MG TAB PO SCH (21:35)
[2023-10-11] MEDS: Morphine 2 MG/ML VIAL SLOW IVP PRN ×2 (01:40→05:38)
[2023-10-11] MEDS: Acetaminophen 500 MG TAB PO SCH (05:37)
[2023-10-11] MEDS: Ketorolac Tromethamine 30 MG/ML VIAL IVP PRN (05:38)
[2023-10-11] MEDS ORDERED: Morphine 2 MG/ML VIAL SLOW IVP PRN (08:30)
[2023-10-11 08:40] VITALS: BP 115/80; TEMP 98
[2023-10-11] MEDS ORDERED: Morphine IR Tab 15 MG TAB PO PRN (10:38)
[2023-10-11] MEDS ORDERED: Morphine IR 10 MG/5 ML UDCUP PO SCH (11:00)
[2023-10-11] MEDS: Baclofen 10 MG TAB PO SCH (12:58)
[2023-10-11] MEDS: Senokot S 8.6-50 MG TAB PO SCH (12:58)
[2023-10-11] MEDS: Polyethylene Glycol 3350 17 GM Packet PO SCH (12:58)
== END 2023-10-11 12:13 | disposition left against medical advice (07) | DRG 556 ==
LOC: ERS 01:27 → ERHOLD 05:02 → T4-B 14:02 → OBSVTOIN 10-08 15:10
PROVIDERS: ADMIT Emergency Medicine; ATTEND Emergency Medicine
DX: M62.81 Muscle weakness (generalized) (principal); M51.27 Other intervertebral disc displacement, lumbosacral region; K21.9 Gastro-esophageal reflux disease without esophagitis; K76.0 Fatty (change of) liver, not elsewhere classified; G89.29 Other chronic pain; M85.80 Other specified disorders of bone density and structure, unspecified site; E55.9 Vitamin D deficiency, unspecified; Z88.2 Allergy status to sulfonamides; Z88.8 Allergy status to other drugs, medicaments and biological substances; Z79.899 Other long term (current) drug therapy; Z98.890 Other specified postprocedural states; Z82.49 Family history of ischemic heart disease and other diseases of the circulatory system; Z83.3 Family history of diabetes mellitus
CPT/HCPCS: 36415; 72128; 72131; 72141; 72146; 72148; 80048; 80053; 85025; 86140; 96374; 96375; 96376; G0378; J1100; J1170; J1650; J1885; J2272; J2405; J7120

== ENCOUNTER 2024-06-15 10:04 | Emergency (ER) | payer MEDICARE, BC | END 2024-06-15 14:24 | disposition home or self-care (01) | LOC: ERS 10:04 | DX: T63.441A Toxic effect of venom of bees, accidental (unintentional), initial encounter (principal); R06.02 Shortness of breath; R42 Dizziness and giddiness; F17.220 Nicotine dependence, chewing tobacco, uncomplicated; Z55.6 Problems related to health literacy | CPT/HCPCS: 93005; 93010; 96360 ==

== ENCOUNTER 2024-12-20 16:21 | Emergency (ER) | payer MEDICARE, BC ==
[~2024-12-20 16:21] MED LIST: Iopamidol-370 76% 500 ML MDV (1 ML CHARGE) ONE
[2024-12-20] MEDS ORDERED: Ketorolac Tromethamine 30 MG (1 mL) VIAL ONE (16:58)
[2024-12-20] MEDS ORDERED: HYDROmorphone 0.5 MG/0.5 ML SYRINGE ONE ×2 (17:29→18:56)
[2024-12-20 18:11] LABS: #Basophils 0.06 10x3/uL (0.0-0.2); %Basophils 0.8 % (0.0-1.0); %Eosinophils 2.8 % (0.0-10.0); %Lymphocytes 29.7 % (21.0-51.0); %Monocytes 6.4 % (0.0-10.0); %Neutrophils 60.2 % (42.0-75.0); Hematocrit 46.1 % (42.0-52.0); Hemoglobin 15.8 g/dL (14.0-18.0); Mean Corpuscular HGB CONC 34.3 g/dL (32.0-36.0); Mean Corpuscular Hemoglobin 29.3 pg (27.0-31.0); Mean Corpuscular Volume 85.5 fL (78.0-98.0); Mean Platelet Volume 9.2 fL (7.4-10.4); Platelet Count 235 10x3/uL (130-400); RBC Distribution Width 12.7 % (11.5-14.5); Red Blood Cell (RBC) Count 5.39 mill/uL (4.70-6.10)
[2024-12-20 18:26] LABS: ALT (SGPT) 27 U/L (Less than 45); AST (SGOT) 32 U/L (11-34); Albumin 4.6 g/dL (3.1-4.5); Alkaline Phosphatase 49 U/L (40-110); Anion Gap 16 mmol/L (10-20); BUN (Urea Nitrogen) 12 mg/dL (8.9-20.6); Bilirubin, Total 0.5 mg/dL (0.3-1.2); CK (CPK) 104 U/L (30-200); Calc. Creatinine Clearance 0 mL/min (70-130); Calcium 9.2 mg/dL (7.8-10.44); Carbon Dioxide 25 mmol/L (22-29); Chloride 102 mmol/L (98-107); Estimated GFR 115; Globulin 2.7 g/dL (2.4-3.5); Glucose 84 mg/dL (70-105); Potassium 3.9 mmol/L (3.5-5.1); Protein, Total 7.3 g/dL (6.0-8.3); Sodium 139 mmol/L (136-145)
== END 2024-12-20 19:09 | disposition home or self-care (01) ==
LOC: ERS 16:21
DX: M54.2 Cervicalgia (principal); M54.50 Low back pain, unspecified; F17.220 Nicotine dependence, chewing tobacco, uncomplicated
CPT/HCPCS: 70450; 71260; 72125; 74177; 80053; 82550; 85025; J1171; J1885; 36415; 96374; 96375; 96376; Q9967